=== PATIENT | female | born 1985 | race Two or more races ===

== ENCOUNTER 2024-05-18 15:00 | Outpatient (RCR) | payer MEDICAID, SELFPAY | END 2024-06-12 23:59 | disposition home or self-care (01) | LOC: CPTX 15:00 | PROVIDERS: PCP Physician Assistant; Referring Provider Physician Assistant; Visit Provider Physician Assistant | DX: Z53.9 Procedure and treatment not carried out, unspecified reason (principal) ==

== ENCOUNTER 2024-08-16 11:02 | Emergency (ER) | payer MEDICAID, SELFPAY ==
[2024-08-16 11:14] VITALS: BP 106/70; PULSE 60; RESP 16; TEMP 36.7; O2SAT 99
[2024-08-16] MEDS: TETRACAINE PF OP SOL 0.5% 4 ML DRPETTE 1 DROP LEFT EYE (11:55)
[2024-08-16] MEDS: FLUORESCEIN SOD 1 MG STRP LEFT EYE (11:56)
--- NOTE | 2024-08-16 12:58 | EDNOTE_ITS ---
ED Eye Problem RME/HPI General Chief complaint: Eye Problems Stated complaint: Hit by a branch in her left eye Time Seen by Provider: 08/16/24 11:09 Arrival date/time: 08/16/24 11:02 RME / HPI RME / HPI Narrative: 39-year-old female presents to the ED with a complaint of left eye pain secondary to an injury she sustained at work. 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 While at work today a branch struck her in the left eye causing significant pain. Her last tetanus is unknown. She complained of mild blurry vision following the incident. She denies any medical problems. She denies any recent illness with fever, chills, cough, upper respiratory complaints. She has no allergies to medications. Related Data Home Medications ?Medication ?Instructions ?Recorded ?Confirmed vits [id number] fum 1 tab PO QDAY 0 10/20/19 27 mg iron-folic acid 800 mcg tablet ( Vitamin) Previous Rx's ?Medication ?Instructions ?Recorded gentamicin 0.3 % eye drops 2 drp ophthalmic (eye) QID Corneal 08/16/24 abrasion #5 mL ibuprofen 600 mg tablet 600 mg PO Q8H PRN pain #20 t abs 08/16/24 Allergies Allergy/AdvReac Type Severity Reaction Status Date / Time No Known Allergies Allergy Verified 08/16/24 11:06 Review of Systems Review of Systems Systems Reviewed: All systems reviewed, normal except as documented Past Medical History Past Medical History NEUROLOGIC: Negative Neurological Disorders CARDIAC: Negative Cardiac Disorders or Congestive Heart Failure RESPIRATORY: Negative Chronic Obstructive Pulmonary Disease (COPD) GASTROINTESTINAL: Negative Gastrointestinal Disorders or Hepatitis GENITOURINARY: Negative Genitourinary Disorders or Renal Disease MUSCULOSKELETAL: Negative Musculoskeletal Disorders ENDOCRINE: Negative Endocrine Disorders, Diabetes Mellitus Type 1 or Diabetes Mellitus Type 2 HEMATOLOGIC: Negative Blood Disorders OTHER HISTORY: Negative Hospitalization, Autoimmune Disease, Down Syndrome, Developmental Delay, Shingles, Falls, Blood Transfusions, Blood Transfusion Reaction, Anesthesia Reactions, Organ Transplant, Chemotherapy, Radiation Therapy, Hyperbaric Therapy, MRSA, VRSA, Vancomycin-Resistant Enterococci, Human Immunodeficiency Virus (HIV), Chicken Pox, Measles, Mumps, Rubella ([place] Measles), Pertussis, Clostridium Difficile or Cancer Family History FAMILY HISTORY: Negative Family Psychiatric Problems, Family Respiratory Disorders, Family Cardiac Disorders, Family Gastrointestinal Problems, Family Cancer, Family Surgery or Family Anesthesia Reaction Surgical History SURGICAL: Negative Section or Organ Transplant Social History SMOKING STATUS: Never smoker ED Exam Narrative Physical exam: Alert and oriented, pleasant 39-year-old female, laying on gurney, with mild acute pain distress. Pupils are PERRL, EOMs intact, mild scleral erythema. Fluorescein dye uptake in the 1 to 2 o'clock position of the iris and sclera left eye. No uptake across the field of vision. No corneal clouding or hyphema noted. No subconjunctival hemorrhage noted. Visual acuity right eye 20/15, left eye 20/30, bilateral 20/20. Course Course Course Narrative: 39-year-old female presents to the ED with a complaint of left eye pain secondary to an injury she sustained at work. 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 While at work today a branch struck her in the left eye causing significant pain. Her last tetanus is unknown. She complained of mild blurry vision following the incident. She denies any medical problems. She denies any recent illness with fever, chills, cough, upper respiratory complaints. She has no allergies to medications. Alert and oriented, pleasant 39-year-old female, laying on gurney, with mild acute pain distress. Pupils are PERRL, EOMs intact, mild scleral erythema. Fluorescein dye uptake in the 1 to 2 o'clock position of the iris and sclera left eye. No uptake across the field of vision. No corneal clouding or hyphema noted. No subconjunctival hemorrhage noted. Visual acuity right eye 20/15, left eye 20/30, bilateral 20/20. Tetracaine utilized for anesthesia of the left eye. Left eye irrigated with John lens and 1 L of normal saline. I was then reanesthetized with tetracaine for fluorescein dye and Perez lamp exam. Exam as noted above. Patient tolerated procedure well. Tetanus will be updated and patient will be discharged home with antibiotic eyedrops. She was advised to follow-up with her Worker's Compensation clinic of her employer's choice. She will be given a work note to return to work tomorrow. Orders Category Date Time Status ED Eye Irrigation ONCE Care 08/16/24 11:16 Active Perez Lamp to Bedside X1 Care 08/16/24 11:16 Completed Fluorescein Sodium [[id number]] Med 08/16/24 11:16 Discontinued 1 mg LEFT EYE X1 ONE TETRACAINE Op Brenda 0.5% [Pontocaine Op Brenda 0.5%] Med 08/16/24 11:16 Discontinued 1 drop LEFT EYE X1 ONE Vital Signs Vital signs: Vital Signs Temperature 98.1 F 08/16/24 11:14 Pulse Rate 60 08/16/24 11:14 Respiratory Rate 16 08/16/24 11:14 Blood Pressure 106/70 08/16/24 11:14 Pulse Oximetry (%) 99 08/16/24 11:14 Oxygen Delivery Method Room Air 08/16/24 11:14 Eye MDM Narrative MDM Narrative:: 39-year-old female presents to the ED with a complaint of left eye pain secondary to an injury she sustained at work. 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 While at work today a branch struck her in the left eye causing significant pain. Her last tetanus is unknown. She complained of mild blurry vision following the incident. She denies any medical problems. She denies any recent illness with fever, chills, cough, upper respiratory complaints. She has no allergies to medications. Alert and oriented, pleasant 39-year-old female, laying on gurney, with mild acute pain distress. Pupils are PERRL, EOMs intact, mild scleral erythema. Fluorescein dye uptake in the 1 to 2 o'clock position of the iris and sclera left eye. No uptake across the field of vision. No corneal clouding or hyphema noted. No subconjunctival hemorrhage noted. Visual acuity right eye 20/15, left eye 20/30, bilateral 20/20. Tetracaine utilized for anesthesia of the left eye. Left eye irrigated with John lens and 1 L of normal saline. I was then reanesthetized with tetracaine for fluorescein dye and Perez lamp exam. Exam as noted above. Patient tolerated procedure well. Tetanus will be updated and patient will be discharged home with antibiotic eyedrops. She was advised to follow-up with her Worker's Compensation clinic of her employer's choice. She will be given a work note to return to work tomorrow. Patient data External records reviewed:: Other (specify) Clinical information provided by:: patient Social determinants that could affect healthcare access:: none Patient has the following chronic illnesses:: N/A How is presenting disease/condition affected by chronic disease/condition?: no chronic disease Evaluation data The following diagnostics were reviewed and interpreted by me:: other (specify) (N/A) Lab and/or radiology exams considered but not ordered:: N/A Interpretation Summary: N/A Medications / Prescriptions Medications or Prescriptions considered but not ordered:: N/A Medication administrations:: Medication Administration History Discontinued Medications Fluorescein Sodium (Fluorescein Sod 1 Mg Strp) 1 mg LEFT EYE X1 ONE Stop: 08/16/24 11:17 Last Admin: 08/16/24 11:56 Dose: 1 mg Documented By: ESTELA Tetracaine HCl (Tetracaine Pf Op Brenda 0.5% 4 Ml Drpette) 1 drop LEFT EYE X1 ONE Stop: 08/16/24 11:17 Last Admin: 08/16/24 11:55 Dose: 1 drop Documented By: ESTELA Tetracaine and fluorescein to left eye. Tdap updated. Consultations Consultation(s) initiated? (list below): No Diagnosis Eye Problem Differential Diagnosis: corneal abrasion, hyphema, subconjunctival hemorrhage and corneal ulcer Most likely diagnosis given after review of the tests above:: Left corneal abrasion Admission Indicated Admission indicated?: not indicated Explain why admission is indicated or not indicated:: Patient is stable for discharge Admission Request Was there a request for admission?: No Disposition Plan Disposition Plan: Discharge Discharge Attestation Discharge Attestation: The patient and all family members were given an opportunity to ask questions and understood the discharge instructions. Discharge instructions specifically effects, indications for sooner follow up or return to the emergency department, and the expected course of current diagnosis. Patient condition: Stable Discharge Plan Plan Patient Disposition: HOME (Self Care) Discharge Disposition comment: Stable and improved Prescriptions/Referrals Prescriptions/Med Rec: New gentamicin 0.3 % drops 2 drp ophthalmic (eye) QID Qty: 5 0RF ibuprofen 600 mg tablet 600 mg PO Q8H PRN (Reason: pain) Qty: 20 0RF No Action Vitamin 27 mg iron- 800 mcg Tablet 1 tab PO QDAY Referrals: No Primary/Family,Physician [Primary Care Provider] - In 1 week Problem List Clinical Impression: Corneal abrasion Patient/Caregiver Discharge Instructions Education Materials: ED Corneal Abrasion Additional Instructions: Usa las gotas para los ojos sandy lo prescrito. Danyell un seguimiento con la clinica de compensacion laboral sandy lo indicado por lima empleador. Regresar al departamento de emergencias por cualquier sintoma nuevo o que empeore. Print Language: Armenian Stand Alone Forms: Ludivina Award Info., Patient Portal Info Letter PA/NUCLEAR CARDIOLOGY TECHNOLOGIST Supervising Physician PA/NUCLEAR CARDIOLOGY TECHNOLOGIST Supervising Physician: Dr. Hernandez
[2024-08-16] MEDS: IBUPROFEN TAB 600 MG TABLET PO (14:06)
[2024-08-16] MEDS: DIPHTH,PERTUSS(ACELL),TET VAC 0.5 ML SYR- ADULT IMi (14:06)
[2024-08-16 14:20] VITALS: BP 106/63; PULSE 51; RESP 18; TEMP 36.7; O2SAT 99
--- NOTE | 2024-08-16 15:24 | PC.NURSE ---
Patient states pain 9/10 after ibuprofen. Informed ER provider and received verbal order for 5mg morphine IM.
[2024-08-16] MEDS: MORPHINE SULF INJ 10 MG/ML VIAL 5 MG IM (15:38)
== END 2024-08-16 15:40 | disposition home or self-care (01) ==
PROVIDERS: Emergency Provider Emergency Medicine
DX: S05.02XA Injury of conjunctiva and corneal abrasion without foreign body, left eye, initial encounter (principal); W22.8XXA Striking against or struck by other objects, initial encounter; Z23 Encounter for immunization
CPT/HCPCS: 90471; 90715; 99283; J2270; A9270